=== PATIENT | male | born 1945 | race Caucasian/White ===

== ENCOUNTER → 2024-01-30 09:16 | Outpatient (REF) | payer MEDICARE, SELFPAY | LOC: RAD 09:16 | PROVIDERS: ATTENDING PHYSICIAN Internal Medicine Gastroenterology; FAMILY PHYSICIAN Family Medicine | DX: K70.31 Alcoholic cirrhosis of liver with ascites (principal) | CPT/HCPCS: 76700 ==

== ENCOUNTER → 2024-02-11 07:21 | Outpatient (REF) | payer MEDICARE, SELFPAY | LOC: MRI 07:21 | PROVIDERS: ATTENDING PHYSICIAN Internal Medicine Gastroenterology; FAMILY PHYSICIAN Family Medicine | DX: K86.89 Other specified diseases of pancreas (principal) | CPT/HCPCS: 74183; A9575 ==

== ENCOUNTER → 2024-02-17 09:00 | Day surgery (SDC) | payer MEDICARE, SELFPAY ==
[2024-02-18 09:46] VITALS: BMI 22.8
[2024-02-18 09:50] VITALS: BP 115/69
[2024-02-18 10:05] LABS: Glucose - Point of Care 142 mg/dl (70-99)
[2024-02-18 10:10] VITALS: BMI 22.8
[2024-02-18 11:31] VITALS: BP 108/78
[2024-02-18 11:45] VITALS: BP 112/72
== END | disposition home or self-care (01) ==
LOC: GI 09:00
PROVIDERS: ATTENDING PHYSICIAN Internal Medicine Gastroenterology
DX: I85.00 Esophageal varices without bleeding (principal); K76.6 Portal hypertension; K31.89 Other diseases of stomach and duodenum
CPT/HCPCS: 43235; 82962

== ENCOUNTER → 2024-08-12 09:54 | Outpatient (REF) | payer MEDICARE, SELFPAY | LOC: MRI 3T 09:54 | PROVIDERS: ATTENDING PHYSICIAN Internal Medicine Gastroenterology; FAMILY PHYSICIAN Family Medicine | DX: K70.31 Alcoholic cirrhosis of liver with ascites (principal) | CPT/HCPCS: 74183; A9581 ==

== ENCOUNTER → 2025-03-18 08:42 | Outpatient (REF) | payer MEDICARE, SELFPAY | LOC: RAD 08:42 | PROVIDERS: ATTENDING PHYSICIAN Internal Medicine Gastroenterology; FAMILY PHYSICIAN Family Medicine | DX: K70.31 Alcoholic cirrhosis of liver with ascites (principal) | CPT/HCPCS: 76700 ==